=== PATIENT | male | born 1990 | race Caucasian/White ===

== ENCOUNTER 2018-10-21 22:36 | Emergency (ER) | payer OTHER ==
[~2018-10-21] VITALS: Ht 180.3 cm; Wt 111.4 kg
[2018-10-21 22:40] VITALS: TEMP 98.6
[2018-10-21] MEDS ORDERED: CHANTIX 1MG1 MG PO (22:44)
[2018-10-21] MEDS ORDERED: ZOLOFT 100MG100 MG PO (22:44)
[2018-10-21] MEDS ORDERED: PRIL40 PO (22:45)
[2018-10-21] MEDS ORDERED: AMBIEN 10MG10 MG PO (22:46)
[2018-10-21] MEDS ORDERED: INVEGA3 MG PO (22:46)
[2018-10-21] MEDS ORDERED: AMOXICILLIN 50500 MG PO (22:47)
[2018-10-21 23:29] LABS: BASO # 0.2 (0.0-0.2); BASO % 1.2 % (0.0-2.0); EOS # 0.6 (0.0-0.7); EOS % 4.4 % (0-4.0); GRAN # 6.2 (1.4-6.5); GRAN % 47.9 % (42.2-75.2); HEMATOCRIT 43.8 % (42.0-52.0); HEMOGLOBIN 15.1 g/dl (13.5-18.0); LYMPH % 38.7 % (20.0-51.0); MEAN CELL VOLUME 86 fl (80.0-100.0); MEAN CORPUSCULAR HEMOGLOBIN 30 pg (27.0-31.0); MEAN CORPUSCULAR HGB CONC 35 g/dl (33.0-37.0); MEAN PLATELET VOLUME 9.4 fl (7.4-10.4); MONO # 0.9 (0.1-0.6); MONO % 7.3 % (1.7-9.3); PLATELET COUNT 333 K/mm3 (130-400); RED BLOOD COUNT 5.08 M/mm3 (4.20-5.60); REDCELL DISTRIBUTION WIDTH-CV 12.6 % (11.5-14.5)
[2018-10-21 23:40] LABS: ALANINE AMINOTRANSFERASE 27 U/L (21-72); ALKALINE PHOSPHATASE 83 U/L (50-136); ANION GAP 8 mmol/L (7-16); AST,SGOT 21 U/L (15-37); BILIRUBIN,TOTAL 0.3 mg/dL (0.0-1.0); BLOOD UREA NITROGEN 14 mg/dL (9-20); CARBON DIOXIDE 27 mmol/L (22-30); CHLORIDE 104 mmol/L (98-107); CREATININE, serum 0.69 mg/dL (0.66-1.25); GLUCOSE 99 mg/dL (74-106); POTASSIUM 3.9 mmol/L (3.4-5.0); SODIUM 139 mmol/L (137-145); TOTAL PROTEIN 6.9 gm/dL (6.4-8.2)
[2018-10-21 23:55] LABS: PROLACTIN 9.9 ng/mL (3.7-17.9)
[2018-10-22] VITALS: BP 116/69
[2018-10-22 00:19] LABS: TROPONIN-I < 0.012 ng/mL (0.000-0.035)
[2018-10-22] MEDS ORDERED: ZITHROMAX Z PA250 MG PO (01:52)
[2018-10-22 02:04] VITALS: PULSE 89
== END 2018-10-22 02:54 | disposition home or self-care (01) ==
LOC: COL.ER 22:36
PROVIDERS: Emergency Medicine
DX: I95.1 Orthostatic hypotension (principal); J45.909 Unspecified asthma, uncomplicated; K21.9 Gastro-esophageal reflux disease without esophagitis; F32.9 Major depressive disorder, single episode, unspecified; F17.210 Nicotine dependence, cigarettes, uncomplicated; E66.9 Obesity, unspecified; Z68.34 Body mass index [BMI] 34.0-34.9, adult
CPT/HCPCS: J7030

== ENCOUNTER 2019-06-22 14:11 | Emergency (ER) | payer SELFPAY ==
[~2019-06-22] VITALS: Ht 180.3 cm; Wt 121.4 kg
[~2019-06-22 14:11] MED LIST: AMBIEN 10MG10 MG PO; AMOXICILLIN 50500 MG PO; CHANTIX 1MG1 MG PO; INVEGA3 MG PO; PRIL40 PO; ZITHROMAX Z PA250 MG PO; ZOLOFT 100MG100 MG PO
[2019-06-22 14:23] VITALS: BP 140/63; TEMP 98.3
[2019-06-22] MEDS ORDERED: PREDNISONE20 MG PO (15:47)
[2019-06-22] MEDS ORDERED: ZITHROMAX Z PA250 MG PO (15:47)
[2019-06-22 16:07] VITALS: PULSE 103
== END 2019-06-22 16:07 | disposition home or self-care (01) ==
LOC: COL.ER 14:11
DX: J40 Bronchitis, not specified as acute or chronic (principal); F17.210 Nicotine dependence, cigarettes, uncomplicated; Z90.89 Acquired absence of other organs

== ENCOUNTER 2019-09-02 15:40 | Emergency (ER) | payer SELFPAY ==
[~2019-09-02] VITALS: Ht 180.3 cm; Wt 121.8 kg
[~2019-09-02 15:40] MED LIST changes: +PREDNISONE20 MG PO
[2019-09-02 15:58] VITALS: BP 145/76; TEMP 99.1
[2019-09-02] MEDS ORDERED: PREDNISONE20 MG PO (17:30)
[2019-09-02] MEDS ORDERED: ZITHROMAX Z PA250 MG PO (17:30)
[2019-09-02 17:45] VITALS: PULSE 95
== END 2019-09-02 17:45 | disposition home or self-care (01) ==
LOC: COL.ER 15:40
DX: J20.9 Acute bronchitis, unspecified (principal); J45.909 Unspecified asthma, uncomplicated; F17.210 Nicotine dependence, cigarettes, uncomplicated
CPT/HCPCS: J7512

== ENCOUNTER 2020-08-11 20:47 | Emergency (ER) | payer SELFPAY ==
[~2020-08-11] VITALS: Ht 180.3 cm; Wt 122.7 kg
[2020-08-11 20:53] VITALS: BP 130/91; TEMP 98.6
[2020-08-11] MEDS ORDERED: NORCO 325 MG-51 TAB PO (21:26)
[2020-08-11] MEDS ORDERED: AMOXICILLIN 50500 MG PO (21:26)
[2020-08-11 21:34] VITALS: PULSE 81
== END 2020-08-11 21:34 | disposition home or self-care (01) ==
LOC: COL.ER 20:47
DX: K08.89 Other specified disorders of teeth and supporting structures (principal); Z90.49 Acquired absence of other specified parts of digestive tract; Z79.2 Long term (current) use of antibiotics

== ENCOUNTER 2020-10-16 22:29 | Emergency (ER) | payer SELFPAY ==
[~2020-10-16] VITALS: Ht 180.3 cm; Wt 122.7 kg
[~2020-10-16 22:29] MED LIST changes: +NORCO 325 MG-51 TAB PO
[2020-10-16 22:33] VITALS: TEMP 98.4
[2020-10-17 00:14] LABS: BASO # 0.2 (0.0-0.2); BASO % 1.2 % (0.0-2.0); EOS # 0.3 (0.0-0.7); EOS % 2.7 % (0-4.0); GRAN # 6.5 (1.4-6.5); GRAN % 52.8 % (42.2-75.2); HEMATOCRIT 44.1 % (42.0-52.0); HEMOGLOBIN 14.5 g/dl (13.5-18.0); LYMPH # 4.7 (1.2-3.4); LYMPH % 37.7 % (20.0-51.0); MEAN CELL VOLUME 90 fl (80.0-100.0); MEAN CORPUSCULAR HEMOGLOBIN 30 pg (27.0-31.0); MEAN CORPUSCULAR HGB CONC 33 g/dl (33.0-37.0); MEAN PLATELET VOLUME 9.7 fl (7.4-10.4); MONO # 0.7 (0.1-0.6); MONO % 5.4 % (1.7-9.3); PLATELET COUNT 288 K/mm3 (130-400); REDCELL DISTRIBUTION WIDTH-CV 12.7 % (11.5-14.5)
[2020-10-17 00:27] LABS: ALANINE AMINOTRANSFERASE 27 U/L (4-49); ALBUMIN 3.8 gm/dL (3.5-5.0); ALKALINE PHOSPHATASE 67 U/L (50-136); ANION GAP 8 mmol/L (7-16); AST,SGOT 24 U/L (15-37); BILIRUBIN,TOTAL 0.4 mg/dL (0.0-1.0); BLOOD UREA NITROGEN 10 mg/dL (9-20); CALCIUM 8.4 mg/dL (8.4-10.2); CARBON DIOXIDE 23 mmol/L (22-30); CHLORIDE 107 mmol/L (98-107); CREATININE, serum 0.79 (0.66-1.25); GLUCOSE 160 mg/dL (74-106); LIPASE 70 U/L (23-300); POTASSIUM 3.3 mmol/L (3.4-5.0); SODIUM 137 mmol/L (137-145); TOTAL PROTEIN 6.4 gm/dL (6.4-8.2)
[2020-10-17 00:40] LABS: TROPONIN-I < 0.012 ng/mL (0.000-0.035)
[2020-10-17] MEDS ORDERED: PREDNISONE20 MG PO (00:50)
[2020-10-17] MEDS ORDERED: ALBUTEROL0.83 MG/ML IH (00:50)
[2020-10-17] MEDS ORDERED: NEB MC (00:50)
[2020-10-17 01:04] VITALS: BP 136/80; PULSE 76
== END 2020-10-17 01:04 | disposition home or self-care (01) ==
LOC: COL.ER 22:29
PROVIDERS: Emergency Medicine
DX: R07.2 Precordial pain (principal); Z20.822 Contact with and (suspected) exposure to COVID-19; Z79.52 Long term (current) use of systemic steroids
CPT/HCPCS: A4614; J1885; J7512

== ENCOUNTER 2021-06-03 09:24 | Emergency (ER) | payer OTHER ==
[~2021-06-03] VITALS: Ht 180.3 cm; Wt 121.8 kg
[~2021-06-03 09:24] MED LIST changes: +ALBUTEROL0.83 MG/ML IH; +NEB MC
[2021-06-03 09:51] VITALS: TEMP 98.6
[2021-06-03 10:41] LABS: BASO # 0.2 (0.0-0.2); BASO % 1.4 % (0.0-2.0); EOS # 0.3 (0.0-0.7); EOS % 2.6 % (0-4.0); GRAN # 6.9 (1.4-6.5); GRAN % 57.5 % (42.2-75.2); HEMATOCRIT 45.3 % (42.0-52.0); HEMOGLOBIN 15.3 g/dl (13.5-18.0); LYMPH # 4.1 (1.2-3.4); LYMPH % 34.1 % (20.0-51.0); MEAN CELL VOLUME 89 fl (80.0-100.0); MEAN CORPUSCULAR HEMOGLOBIN 30 pg (27.0-31.0); MEAN CORPUSCULAR HGB CONC 34 g/dl (33.0-37.0); MEAN PLATELET VOLUME 9.9 fl (7.4-10.4); MONO # 0.5 (0.1-0.6); MONO % 4.2 % (1.7-9.3); PLATELET COUNT 321 K/mm3 (130-400); RED BLOOD COUNT 5.08 M/mm3 (4.20-5.60)
[2021-06-03 10:45] LABS: ALANINE AMINOTRANSFERASE 35 U/L (4-49); ALBUMIN 3.9 gm/dL (3.5-5.0); ALKALINE PHOSPHATASE 67 U/L (50-136); ANION GAP 5 mmol/L (7-16); AST,SGOT 32 U/L (15-37); BILIRUBIN,TOTAL 0.5 mg/dL (0.0-1.0); BLOOD UREA NITROGEN 8 mg/dL (9-20); CALCIUM 8.3 mg/dL (8.4-10.2); CARBON DIOXIDE 25 mmol/L (22-30); CHLORIDE 108 mmol/L (98-107); CREATININE, serum 0.77 (0.66-1.25); GLUCOSE 112 mg/dL (74-106); POTASSIUM 4.4 mmol/L (3.4-5.0); SODIUM 138 mmol/L (137-145); TOTAL PROTEIN 6.3 gm/dL (6.4-8.2)
[2021-06-03 10:46] LABS: C-REACTIVE PROTEIN < 0.5 mg/dL (0.0-0.9)
[2021-06-03] MEDS ORDERED: MEDROL 4MG DOSPA4 MG PO (11:10)
[2021-06-03 11:24] VITALS: BP 117/72; PULSE 50
== END 2021-06-03 11:24 | disposition home or self-care (01) ==
LOC: COL.ER 09:24
PROVIDERS: Nurse Practitioner
DX: R20.2 Paresthesia of skin (principal); J45.909 Unspecified asthma, uncomplicated; F17.210 Nicotine dependence, cigarettes, uncomplicated; Z79.899 Other long term (current) drug therapy

== ENCOUNTER → 2021-11-05 | Outpatient (CLI) | payer OTHER ==
[~2021-11-05] MED LIST changes: +MEDROL 4MG DOSPA4 MG PO; +ULTRAM 50MG TAB50 MG PO
== END ==
LOC: COL.RAD 11:09
DX: M48.02 Spinal stenosis, cervical region (principal); I88.9 Nonspecific lymphadenitis, unspecified; M43.9 Deforming dorsopathy, unspecified

== ENCOUNTER 2021-11-13 17:03 | Emergency (ER) | payer SELFPAY ==
[~2021-11-13] VITALS: Ht 180.3 cm; Wt 122.7 kg
[~2021-11-13 17:03] MED LIST changes: -ULTRAM 50MG TAB50 MG PO
[2021-11-13 17:16] VITALS: TEMP 98.5
[2021-11-13] MEDS ORDERED: ULTRAM 50MG TAB50 MG PO (18:26)
[2021-11-13] MEDS ORDERED: AMOXICILLIN 50500 MG PO (18:26)
[2021-11-13 18:36] VITALS: BP 138/83; PULSE 78
== END 2021-11-13 18:37 | disposition home or self-care (01) ==
LOC: COL.ER 17:03
DX: K02.9 Dental caries, unspecified (principal); F17.200 Nicotine dependence, unspecified, uncomplicated